=== PATIENT | female | born 1945 | race Caucasian/White ===

== ENCOUNTER 2019-07-06 21:31 | Emergency (ER) | payer BC ==
[~2019-07-06] VITALS: Ht 152.4 cm; Wt 77.1 kg
[~2019-07-06 21:31] MED LIST: ALBU8.5H2 IH; ASPI81TA57 PO; CETI-176 PO; HCT25T PO; HYDR25TA4 PO; MECL25TA56 PO; OXYC-12 PO
--- NOTE | 2019-07-06 21:36 | NUR ---
213- STROKE PAGED 2138- TO CT 214- BACK FROM CT
[2019-07-06 21:46] LABS: BASOPHILS % (AUTO) 0 % (0-10); EOSINOPHILS # (AUTO) 0.3 10^3/uL (0.0-0.3); EOSINOPHILS % (AUTO) 3 % (0-10); HEMATOCRIT 44 % (35-52); HEMOGLOBIN 14.6 G/DL (11.5-16.0); LYMPHOCYTES # (AUTO) 3.4 X 10^3 (1.0-4.0); LYMPHOCYTES % (AUTO) 38 % (12-44); MEAN CORPUSCULAR HEMOGLOBIN 30 PG (25-34); MEAN CORPUSCULAR HGB CONC 33 G/DL (32-36); MEAN CORPUSCULAR VOLUME 89 FL (80-99); MEAN PLATELET VOLUME 10.6 FL (7.4-10.4); MONOCYTES # (AUTO) 0.8 X 10^3 (0.0-1.0); MONOCYTES % (AUTO) 9 % (0-12); NEUTROPHILS # (AUTO) 4.5 X 10^3 (1.8-7.8); NEUTROPHILS % (AUTO) 50 % (42-75); PLATELET COUNT 229 10^3/uL (130-400); RED CELL DISTRIBUTION WIDTH 13.3 % (10.0-14.5); WHITE BLOOD COUNT 9.1 10^3/uL (4.3-11.0)
--- NOTE | 2019-07-06 21:47 | ED Neurological Problem ---
General Stated Complaint: AMS Source: patient, other (friend) Exam Limitations: clinical condition History of Present Illness Date Seen by Provider: Jul 06, 2019 Time Seen by Provider: 21:30 Initial Comments The patient presents to ER by private conveyance with her friend with chief complaint she started noticing she had difficulty with word finding at 2100. She called her friend at 5 and her friend noticed that she was having difficult time speaking so the friend came and brought her to the ER. She has no history of stroke but she does have high blood pressure. She says she thought that she had TIAs in the past but they said it probably were not TIAs but vertigo instead. She's not on blood thinners. No history of atrial fibrillation. The friend noticed some slight drooping of the right side of the face compared normal. She had no problem walking and feels no numbness or weakness on either side of her body. She says she's been off her blood pressure medicines for the past several months because she had lost some weight through diet and did not think that her blood pressure was very bad. She follows with Dr. Arreaga. Left knee replacement by Drs. Elliott. She says she was told not to have MRIs. Allergies and Home Medications Allergies Coded Allergies: codeine (Verified Allergy, Intermediate, NAUSEA, 10/06/13) VOMITS IMMEDIATELY amoxicillin (Unverified Allergy, Unknown, DIARRHEA, 10/25/14) clavulanic acid (Unverified Allergy, Unknown, DIARRHEA, 10/25/14) ofloxacin (Unverified Allergy, Unknown, 10/25/14) sulfamethoxazole (Unverified Allergy, Unknown, 10/25/14) trimethoprim (Unverified Allergy, Unknown, 10/25/14) Home Medications Albuterol 8.5 Gm Hfa.aer.ad, 1 PUFF IH Q4H PRN for SHORTNESS OF BREATH, (Reported) PRN SHORTNESS OF BREATH Aspirin 81 Mg Tablet.dr, 81 MG PO DAILY, (Reported) Cetirizine Hcl 10 Mg Tablet, 10 MG PO DAILY, (Reported) Hydrochlorothiazide 25 Mg Tablet, 25 MG PO DAILY, (Reported) Patient Home Medication List Home Medication List Reviewed: Yes Review of Systems Review of Systems Constitutional: No chills, No fever, No malaise Eyes: Denies Blindness, Denies Blurred Vision Ears, Nose, Mouth, Throat: denies ear pain, denies ear discharge Respiratory: No cough, No short of breath Cardiovascular: No chest pain, No edema Gastrointestinal: No abdominal pain, No constipation, No diarrhea, No nausea Genitourinary: No discharge, No dysuria Past Urnyazd-Vwxrkm-Alspfo Hx Patient Social History Alcohol Use: Denies Use Recreational Drug Use: No Smoking Status: Never a Smoker Recent Foreign Travel: No Contact w/Someone Who Travel: No Immunizations Up To Date Tetanus Booster (TDap): Unknown Date of Pneumonia Vaccine: Oct 15, 2011 Date of Influenza Vaccine: Aug 01, 2014 Seasonal Allergies Seasonal Allergies: Yes Past Medical History Asthma Reproductive Disorders: No UTI-Chronic Colitis, Chronic Diarrhea Cataract Loss of Vision: Bilateral Hearing Impairment: Denies Family Medical History Alcoholism 09 SISTER Cataracts 03 MOTHER Completed stroke 09 SISTER Congestive heart failure 09 SISTER Dementia 03 MOTHER Diabetes mellitus 09 SISTER Family history: Allergy (hayfever runs in family) Family history: Arthritis 03 MOTHER Family history: Diabetes mellitus 09 SISTER Family history: Thyroid disorder 03 MOTHER History of - respiratory disease (father had hx copd) 03 FATHER Hypertension 03 MOTHER Stroke 09 SISTER Thyroid disease 09 SISTER No Family History of: Abdominal aortic aneurysm Wirt's disease Aphasia Cancer Cancer of colon Cataract Chest pain Congenital heart disease Cystic fibrosis Dementia Dysphagia Family history: Alzheimer's disease Family history: Asthma Family history: Breast disease Family history: Cardiovascular disease Family history: Coronary thrombosis Family history: Gastrointestinal disease Family history: Glaucoma Family history: Hypertension Family history: Osteoporosis Headache Hearing loss Heart disease Hereditary disease History of - anemia History of - disorder History of drug abuse Human immunodeficiency virus (HIV) seropositivity Hypercholesterolemia Infertile Kidney disease Malignant neoplasm of lung Myocardial infarction Parkinson's disease Prostate cancer Psychotic disorder Seizure disorder Tuberculosis Visual impairment Physical Exam Vital Signs Vital Signs - First Documented 07/06/19 21:31 Temp 97.8 Pulse 107 Resp 18 B/P (MAP) 191/86 (121) Capillary Refill : Height, Weight, BMI Height: 5'" Weight: 182lbs. oz. 82.025155pi; BMI Method:Estimated General Appearance: WD/WN, other HEENT: PERRL/EOMI, normal ENT inspection, pharynx normal Neck: non-tender, full range of motion, normal inspection Respiratory: chest non-tender, lungs clear, normal breath sounds, no respiratory distress, no accessory muscle use Cardiovascular: normal peripheral pulses, regular rate, rhythm, no edema Peripheral Pulses: 2+ Dorsalis Pedis (R), 2+ Left Dors-Pedis (L), 2+ Radial Pulses (R), 2+ Radial Pulses (L) Gastrointestinal: non tender, soft Neurologic/Psychiatric: alert, oriented x 3, abnormal hood fitter II-XII (subtle droop at the corner of the right mouth), other (anxious affect, word searching) Crainal Nerves: normal hearing, PERRL, abnormal speech (word searching), facial asymmetry (subtle right-sided mouth droop) Coordination/Gait: normal finger to nose, normal gait Motor/Sensory: no sensory deficit, no pronator drift Skin: normal color, warm/dry Stroke Onset of Symptoms Date of Onset of Symptoms: Jul 06, 2019 Time of Symptom Onset: 21:00 Onset of Symptoms: Yes Symptoms onset unknown: No NIH Stroke Scale Assessment Select: Initial Level of Consciousness: 0=Alert (0), Level of Consciousness- Questions: 0=Answers both month/age (0), LOC Commands: 0=Performs both tasks (0), Gaze: Normal (0), Visual Eduardo: 0=No visual loss (0), Facial Movement (Facial Paresis): 1=Minor paralysis (1), Motor Function-Arms Right: 0=No drift (0), Motor Function-Arms Left: 0=No drift (0), Motor Function-Legs Right: 0=No drift (0), Motor Function-Legs Left: 0=No drift (0), Limb Ataxia: 0=Absent (0), Sensory: 0=Normal:no loss (0), Best Language: 0=No aphasia (0), Dysarthria: 1=Mild to moderate loss word searching (1), Extinction & Inattention: 0=No abnormality (0), Total: 2 Stroke Thrombolytic Exclusion Age 18 or Over: Yes Acute intenal hemorrhage: No History of CVA: No Uncontrolled Coagulation Defec: No Intracranial Hemorrhage: No Severe Hypertension: Yes (201) GI or Bleed: No Subarachnoid Hemorrhage: No Intracranial Neoplasm/Aneurysm: No Oral Anticoagulants: No Surgery or Trauma: No Puncture of Non-Compressible V: No Recent CPR: No Diabetic Hemorrhagic Retinopat: No Organ Biopsy: No Recent Obstetric Delivery: No Glucose: No (96) Significant Hepatic Dysfunctio: No NIH Stoke Scale >22: No Bacterial Endocarditis: No Pericarditis: No Improving Symptoms: No Platelets: No TPA Contraindication: Yes (NIH is too low) IV - TPa Received IV - TPa Procedure Performed?: No Progress/Results/Core Measures Results/Orders Lab Results Laboratory Tests Test 07/06/19 21:11 07/06/19 21:34 Range/Units Urine Color YELLOW Urine Clarity SLIGHTLY CLOUDY Urine pH 5 5-9 Urine Specific [place] 1.025 H 1.016-1.022 Urine Protein 2+ H NEGATIVE Urine Glucose (UA) NEGATIVE NEGATIVE Urine Ketones 1+ H NEGATIVE Urine Nitrite NEGATIVE NEGATIVE Urine Bilirubin 2+ H NEGATIVE Urine Urobilinogen 1 NORMAL MG/DL Urine Leukocyte Esterase 3+ H NEGATIVE Urine RBC (Auto) 2+ H NEGATIVE Urine RBC 0-2 /HPF Urine WBC 25-50 H /HPF Urine Squamous Epithelial Cells 5-10 /HPF Urine Crystals NONE /LPF Urine Bacteria MODERATE H /HPF Urine Casts PRESENT /LPF Urine Hyaline Casts 2-5 H /LPF Urine Mucus MODERATE H /LPF Urine Culture Indicated YES White Blood Count 9.1 4.3-11.0 10^3/uL Red Blood Count 4.94 4.35-5.85 10^6/uL Hemoglobin 14.6 11.5-16.0 G/DL Hematocrit 44 35-52 % Mean Corpuscular Volume 89 80-99 FL Mean Corpuscular Hemoglobin 30 25-34 PG Mean Corpuscular Hemoglobin Concent 33 32-36 G/DL Red Cell Distribution Width 13.3 10.0-14.5 % Platelet Count 229 130-400 10^3/uL Mean Platelet Volume 10.6 H 7.4-10.4 FL Neutrophils (%) (Auto) 50 42-75 % Lymphocytes (%) (Auto) 38 12-44 % Monocytes (%) (Auto) 9 0-12 % Eosinophils (%) (Auto) 3 0-10 % Basophils (%) (Auto) 0 0-10 % Neutrophils # (Auto) 4.5 1.8-7.8 X 10^3 Lymphocytes # (Auto) 3.4 1.0-4.0 X 10^3 Monocytes # (Auto) 0.8 0.0-1.0 X 10^3 Eosinophils # (Auto) 0.3 0.0-0.3 10^3/uL Basophils # (Auto) 0.0 0.0-0.1 10^3/uL Prothrombin Time 13.2 12.2-14.7 SEC INR Comment 1.0 0.8-1.4 Activated Partial Thromboplast Time 38 H 24-35 SEC D-Dimer 0.79 H 0.00-0.49 UG/ML Sodium Level 141 135-145 MMOL/L Potassium Level 3.7 3.6-5.0 MMOL/L Chloride Level 104 98-107 MMOL/L Carbon Dioxide Level 21 21-32 MMOL/L Anion Gap 16 H 5-14 MMOL/L Blood Urea Nitrogen 25 H 7-18 MG/DL Creatinine 1.15 0.60-1.30 MG/DL Estimat Glomerular Filtration Rate 46 BUN/Creatinine Ratio 22 Glucose Level 94 70-105 MG/DL Glucometer 96 70-110 MG/DL Calcium Level 9.6 8.5-10.1 MG/DL Corrected Calcium 8.5-10.1 MG/DL Total Bilirubin 0.4 0.1-1.0 MG/DL Aspartate Amino Transf (AST/SGOT) 24 5-34 U/L Alanine Aminotransferase (ALT/SGPT) 24 0-55 U/L Alkaline Phosphatase 80 40-136 U/L Troponin I < 0.028 <0.028 NG/ML Total Protein 8.5 H 6.4-8.2 GM/DL Albumin 4.8 H 3.2-4.5 GM/DL My Orders Orders - ZAHIRA MOELLER Code/Resuscitation (07/06/19 21:39) Cbc With Automated Diff (07/06/19 21:39) Protime With Inr (07/06/19 21:39) Partial Thromboplastin Time (07/06/19 21:39) Comprehensive Metabolic Panel (07/06/19 21:39) Fibrin Degradation Products (07/06/19 21:39) Troponin I (07/06/19 21:39) Ua Culture If Indicated (07/06/19 21:39) Chest 1 View, Ap/Pa Only (07/06/19 21:39) Ekg Tracing (07/06/19 21:39) Nothing By Mouth (07/07/19 Breakfast) Accucheck Stat ONCE (07/06/19 21:39) Ed Iv/Invasive Line Start (07/06/19 21:39) Ed Iv/Invasive Line Start (07/06/19 21:39) Vital Signs Stroke Patient Q15M (07/06/19 21:39) Ct Head Wo-R/O Stroke (07/06/19 21:39) O2 (07/06/19 21:39) Intake & Output 06,14,22 (07/06/19 21:39) Monitor-Rhythm Ecg Trace Only (07/06/19 21:39) Dysphagia Screening Tool (07/06/19 21:39) Post Thrombolytic Adminstratio (07/06/19 21:39) Lipid Panel (07/07/19 06:00) Ct Angio Head/Neck (07/06/19 22:27) Urine Culture (07/06/19 21:11) Ed Iv/Invasive Line Start (07/06/19 22:56) Ns Iv 500 Ml (Sodium Chloride 0.9%) (07/06/19 22:56) Iohexol Injection (Omnipaque 350 Mg/Ml 1 (07/06/19 23:30) Received Contrast (Hold Metformin- Contr (07/06/19 23:30) Ns (Ivpb) (Sodium Chloride 0.9% Ivpb Bag (07/06/19 23:30) Medications Given in ED Current Medications Medications Dose Ordered Sig/All Route Start Time Stop Time Status Last Admin Dose Admin Iohexol 100 ml ONCE ONCE IV 07/06/19 23:30 07/06/19 23:31 DC 07/06/19 23:28 75 ML Sodium Chloride 100 ml ONCE ONCE IV 07/06/19 23:30 07/06/19 23:31 DC 07/06/19 23:28 80 ML Vital Signs/I&O 07/06/19 21:31 Temp 97.8 Pulse 107 Resp 18 B/P (MAP) 191/86 (121) Progress Progress Note #1: Time: 22:03 Progress Note NIH [address] of the head. Had a short conversation with Drs. Elliott and he said it would be fine for her to get an MRI of the head based on her knee replacement hardware. We are on ICU diversion and do not have telemetry beds available at this time. Progress Note #2: Time: 22:45 Progress Note After discussing extensively with the patient and family she has declined to do tPA as she feels the risks outweigh the benefits. Her symptoms are improving and she is no longer having the word searching difficulty. Initial ECG Impression Date: Jul 06, 2019 Initial ECG Impression Time: 22:03 Initial ECG Rate: 96 Initial ECG Rhythm: Normal Sinus Initial ECG Intervals: Normal Initial ECG Impression: Normal, Nonspecific Changes Initial ECG Comparisson: Unchanged Comment No clinically significant ST elevation or depression. Diagnostic Imaging Diagonstic Imaging: Xray Plain Films/CT/US/NM/MRI: chest (1v) Comments NAME: MISAEL RIVAS [facility] REC#: [id number] PT STATUS: REG ER : 1945 PHYSICIAN: ZAHIRA MOELLER MD ADMIT DATE: 07/06/19/ER Draft Date of Exam:07/06/19 CHEST 1 VIEW, AP/PA ONLY INDICATION: Speech difficulty Upright chest shows normal heart size and vascularity. The lungs are clear. There is no effusion or pneumothorax. There is no bony abnormality. IMPRESSION: No acute abnormality is seen with no change from 10/25/2014. Dictated on workstation # [id number] Dict: 07/06/19 215 Trans: 07/06/19 [facility] [id number] Interpreted by: JOHN MORGAN MD Electronically signed by: Reviewed: Reviewed by Me Diagonstic Imaging: CT (without IV contrast) Plain Films/CT/US/NM/MRI: head Comments NAME: MISAEL RIVAS [facility] REC#: [id number] PHYSICIAN: ZAHIRA MOELLER MD CC: JOHN MORGAN MD; ZAHIRA MOELLER Page 1 of 1 RADIOLOGY REPORT [facility] [place] [place] CC: JOHN MORGAN MD; ZAHIRA MOELLER Page 1 of 1 RADIOLOGY REPORT NAME: MISAEL RIVAS [facility] REC#: [id number] PT STATUS: REG ER : 1945 PHYSICIAN: ZAHIRA MOELLER MD ADMIT DATE: 07/06/19/ER Signed Date of Exam: 07/06/19 CT HEAD WO-R/O STROKE PROCEDURE: CT head wo r/o stroke. TECHNIQUE: Multiple contiguous axial images were obtained through the brain without the use of intravenous contrast. Auto Exposure Controls were utilized during the CT exam to meet ALARA standards for radiation dose reduction. INDICATION: Difficulty with speech. Intractable vertigo The ventricles are normal in size, shape and position. There is no acute parenchymal hemorrhage, edema or mass. There is no extra-axial mass or hemorrhage. IMPRESSION: No acute abnormality is seen with no significant change from the prior study from 10/06/13. Dictated by: Dictated on workstation # [id number] Dict: 07/06/192149 Trans: 07/06/192155 Interpreted by: JOHN MORGAN MD Electronically signed by: JOHN MORGAN MD 07/06/192155 Reviewed: Reviewed by Me Diagonstic Imaging: CT (angiogram) Plain Films/CT/US/NM/MRI: head (neck) Comments No large vessel occlusion or aneurysm. Focal severe stenosis of the P1 segment of the right posterior cerebral artery. No dissection, pseudoaneurysm, or hemodynamically significant stenosis of the carotid or vertebral arteries. Reviewed: Reviewed Night Michele Study, Reviewed by Me Consults : Consults Notes [facility] Stroke Neurologist; 1005: Dr Briscoe: Ok to give TPA. Likely small subcortical stroke. may have good benefit. CTA head and neck. 1145: Dr Briscoe: Updated him on decision with TPA as well as the CT angiogram of head and neck. He agrees with this probably unrelated and nonactionable right now. He will keep the same plan to continue to work her up and get an MRI. Departure Impression Primary Impression: CVA (cerebral vascular accident) Qualified Codes: I63.9 - Cerebral infarction, unspecified Disposition: XFER SHT-TRM HOSP Condition: Stable Transfer Time Spoke to Accepting Phy: 00:01 Transfer Progress Notes We do not have any beds available at [facility] and the patient would prefer [place] [facility]. Spoke with Dr. Phelps, internal medicine and he agrees to accept the patient. Transfer Facility: [facility] [place], [place] Method of Transfer: EMS Departure-Patient Inst. Referrals: NORMA ARREAGA DO (PCP/Family) Primary Care Physician ZAHIRA MOELLER Jul 06, 2019 21:47
[2019-07-06 21:55] LABS: FIBRIN DEGRADATION PRODUCTS 0.79 UG/ML (0.00-0.49); PROTHROMBIN TIME PATIENT 13.2 SEC (12.2-14.7)
--- NOTE | 2019-07-06 21:58 | Diagnostic Imaging Report ---
INDICATION: Speech difficulty Upright chest shows normal heart size and vascularity. The lungs are clear. There is no effusion or pneumothorax. There is no bony abnormality. IMPRESSION: No acute abnormality is seen with no change from 10/25/2014. Dictated by: Dictated on workstation # [id number]
--- NOTE | 2019-07-06 21:59 | Diagnostic Imaging Report ---
PROCEDURE: CT head wo r/o stroke. TECHNIQUE: Multiple contiguous axial images were obtained through the brain without the use of intravenous contrast. Auto Exposure Controls were utilized during the CT exam to meet ALARA standards for radiation dose reduction. INDICATION: Difficulty with speech. Intractable vertigo The ventricles are normal in size, shape and position. There is no acute parenchymal hemorrhage, edema or mass. There is no extra-axial mass or hemorrhage. IMPRESSION: No acute abnormality is seen with no significant change from the prior study from 10/06/13. Dictated by: Dictated on workstation # [id number]
[2019-07-06 22:02] LABS: ALANINE AMINOTRANSFERASE 24 U/L (0-55); ALBUMIN 4.8 GM/DL (3.2-4.5); ALKALINE PHOSPHATASE 80 U/L (40-136); BILIRUBIN,TOTAL 0.4 MG/DL (0.1-1.0); BUN/CREATININE RATIO 22; CALCIUM 9.6 MG/DL (8.5-10.1); CARBON DIOXIDE 21 MMOL/L (21-32); CHLORIDE 104 MMOL/L (98-107); CREATININE SERUM 1.15 MG/DL (0.60-1.30); GFR ESTIMATED 46; GLUCOSE 94 MG/DL (70-105); POTASSIUM 3.7 MMOL/L (3.6-5.0); SODIUM 141 MMOL/L (135-145); TOTAL PROTEIN 8.5 GM/DL (6.4-8.2)
--- NOTE | 2019-07-06 22:18 | NUR ---
DR MOELLER IN ROOM TO DISCUSS TPA ADMIN, PT WISHES TO DISCUSS OPTIONS WITH FAMILY OVER THE PHONE. DR MOELLER ADVISES PT OF TIMEFRAME FOR ADMIN OF TPA TO BE BENEFICIAL.
[2019-07-06 22:21] LABS: CLARITY,URINE SLIGHTLY CLOUDY; COLOR,URINE YELLOW; GLUCOSE, URINE (UA) NEGATIVE (NEGATIVE); KETONES,URINE 1+ (NEGATIVE); LEUKOCYTE ESTERASE ,URINE 3+ (NEGATIVE); NITRITE,URINE NEGATIVE (NEGATIVE); PH,URINE 5 (5-9); PROTEIN,URINE 2+ (NEGATIVE); UROBILINOGEN,URINE 1 MG/DL (NORMAL)
[2019-07-06 22:33] LABS: BACTERIA,URINE MODERATE /HPF; BILIRUBIN,URINE 2+ (NEGATIVE); RBC,URINE 0-2 /HPF; WBC,URINE 25-50 /HPF
[2019-07-06] MEDS ORDERED: NS IV 500 ML 500 ML IV ONE (22:56)
[2019-07-06] MEDS ORDERED: IOHEXOL 350 MG/ML 100 ML (OMNIPAQUE 350) VIAL IV ONE (23:30)
[2019-07-06] MEDS ORDERED: HOLD METFORMIN - RECEIVED CONTRAST 20 ML VIAL IV SCH (23:30)
[2019-07-06] MEDS ORDERED: NS 100 ML (IVPB) BAG IV ONE (23:30)
[2019-07-07] MEDS ORDERED: cefTRIAXone FOR IV USE 1,000 MG in WATER (STERILE) FOR INJECTION 10 ML IV ONE (00:15)
[2019-07-07] MEDS ORDERED: ASPIRIN 81 MG CHEW (CHILDREN'S ASA) PO ONE (00:15)
[2019-07-07] MEDS ORDERED: ATORVASTATIN 40 MG (LIPITOR) TABLET ONE (00:23)
[2019-07-07 04:55] VITALS: BP 155/65
--- NOTE | 2019-07-07 07:15 | Diagnostic Imaging Report ---
PROCEDURE: CT angiography of the head and CT angiography of the neck with and without contrast. TECHNIQUE: Contiguous noncontrast images were obtained from the skull base through the vertex. After intravenous contrast administration, helical CT angiography of the neck was performed. Source data was reformatted into 3D MIP projections. Delayed post contrast acquisition was also obtained. Auto Exposure Controls were utilized during the CT exam to meet ALARA standards for radiation dose reduction. INDICATION: Vertigo, difficulty with speech. Study correlated with noncontrasted head CT performed earlier this same date. Delayed postcontrast enhanced images reveal no abnormal parenchymal or meningeal enhancement. There is enhancement of the major dural venous sinuses. There is no hydrocephalus. No focal edema is apparent. There is enhancement of the major dural venous sinuses. CT angio neck: Left common carotid arises off the innominate as an area. Cervical vertebral arteries are codominant and patent. Is mild non-stenosing calcified plaques at the carotid bulbs and bifurcations without hemodynamically significant degrees of narrowing. The common, cervical, internal carotids have a tortuous course bilaterally but are widely patent. CT angio head: The intradural vertebral arteries are patent. The basilar is patent and unremarkable. There is a plaque and stenosis of the P1 segment of the right LEAFLET DISTRIBUTOR. Its segments beyond are opacified. No large vessel occlusion. There is only mild atherosclerotic narrowing of the left P1 and P2 segment. The intracranial ICAs showed non-stenosing calcified plaques at their cavernous segments. The A1 segments and the intracerebral arteries were unremarkable. The bilateral middle cerebral arterial segments and primary branches appeared unremarkable and symmetric. No large vessel occlusion. No vascular malformation or aneurysm apparent. Impression: Hemodynamically significant intracranial right P1 segment of stenosis. Cervical atherosclerotic disease without hemodynamically significant stenosis in the neck. Non-stenosing cavernous segmental carotid atherosclerosis. No large vessel occlusion or thrombus found. No acute appearing abnormality apparent. Dictated by: Dictated on workstation # [id number]
[2019-07-07] MEDS ORDERED: ATORVASTATIN 40 MG (LIPITOR) TABLET PO SCH (21:00)
== END 2019-07-07 04:55 | disposition short-term general hospital (02) ==
LOC: ER 21:31 → EDUNIT# 21:31 → ER 07-07 04:55
DX: I63.9 Cerebral infarction, unspecified (principal); J45.909 Unspecified asthma, uncomplicated; Z82.49 Family history of ischemic heart disease and other diseases of the circulatory system; Z91.14 Patient's other noncompliance with medication regimen; Z88.5 Allergy status to narcotic agent; Z88.1 Allergy status to other antibiotic agents; Z88.2 Allergy status to sulfonamides; Z79.82 Long term (current) use of aspirin; Z87.440 Personal history of urinary (tract) infections
CPT/HCPCS: 36415; 70450; 70496; 70498; 71045; 80053; 81000; 82962; 84484; 85025; 85379; 85610; 85730; 87088; 93005; 93041; 96361; 96365

== ENCOUNTER → 2019-07-14 | Outpatient (CLI) | payer BC ==
[2019-07-14 10:19] LABS: ALBUMIN 4.6 GM/DL (3.2-4.5); BUN/CREATININE RATIO 27; CALCIUM 9.9 MG/DL (8.5-10.1); CARBON DIOXIDE 25 MMOL/L (21-32); CHLORIDE 104 MMOL/L (98-107); CREATININE SERUM 0.89 MG/DL (0.60-1.30); GFR ESTIMATED > 60; GLUCOSE 100 MG/DL (70-105); POTASSIUM 3.7 MMOL/L (3.6-5.0); SODIUM 141 MMOL/L (135-145)
== END ==
LOC: LAB 09:43
PROVIDERS: ATTEND Family Medicine
DX: I10 Essential (primary) hypertension (principal)
CPT/HCPCS: 36415; 80069

== ENCOUNTER → 2022-11-26 | Outpatient (CLI) | payer BC ==
--- NOTE | 2022-11-27 11:34 | Diagnostic Imaging Report ---
Indication: Routine screening. Comparison is made with prior mammograms from 04/09/2010. 2-D and 3-D bilateral screening mammography was performed with CAD. Scattered fibroglandular densities are identified bilaterally. The parenchymal pattern is stable. There are benign calcifications. No mass or malignant-appearing microcalcifications are seen. Axillae are unremarkable. IMPRESSION: BI-RADS Category 2 No mammographic features suspicious for malignancy are identified. ACR BI-RADS Category 2: Benign findings. Result letter will be mailed to the patient. Note: At least 10% of breast cancer is not imaged by mammography. Dictated by: Dictated on workstation # [id number]
== END ==
LOC: RAD 10:55
PROVIDERS: ATTEND Family Medicine
DX: Z12.31 Encounter for screening mammogram for malignant neoplasm of breast (principal)
CPT/HCPCS: 77063; 77067